=== PATIENT | male | born 1975 | race Caucasian/White ===

== ENCOUNTER 2022-12-23 20:19 | Emergency (ER) | payer OTHER ==
[~2022-12-23] VITALS: Ht 185.4 cm; Wt 111.1 kg
[2022-12-23 20:45] VITALS: BP_SYST 150
[2022-12-23 21:16] LABS: BILIRUBIN,URINE NEGATIVE (NEGATIVE); BLOOD, URINE 1+ (NEGATIVE); CLARITY/URINE CLEAR (CLEAR); COLOR,URINE YELLOW (YELLOW); GLUCOSE,URINE NEGATIVE (NEGATIVE); KETONES,URINE NEGATIVE (NEGATIVE); LEUKOCYTE ESTERASE ,URINE NEGATIVE (NEGATIVE); NITRITE, URINE NEGATIVE (NEGATIVE); PROTEIN URINE NEGATIVE (NEGATIVE); UROBILINOGEN,URINE 0.2 (0.2-1.0)
[2022-12-23 21:38] LABS: BACTERIA,URINE None Seen /HPF (None Seen); MUCUS,URINE None Seen /LPF (None Seen); RBC,URINE NONE SEEN /HPF (0-3); WBC,URINE NONE SEEN /HPF (0-3)
[2022-12-23 21:43] LABS: BASOPHILS % (AUTO) 0.3 % (0.0-2.0); EOSINOPHILS # (AUTO) 0.4 K/uL (0.0-0.4); EOSINOPHILS % (AUTO) 3.1 % (0.0-4.0); HEMOGLOBIN 14.6 g/dL (14.0-18.0); LYMPHOCYTES # (AUTO) 2.4 K/uL (1.0-5.5); MEAN CORPUSCULAR HEMOGLOBIN 30 pg (27-31); MEAN CORPUSCULAR HGB CONC 35 % (32-36); MEAN CORPUSCULAR VOLUME 86 fL (79.0-98.0); MONOCYTES # (AUTO) 1.4 K/uL (0.0-1.0); MONOCYTES % (AUTO) 10.2 % (1.7-9.3); NEUTROPHILS # (AUTO) 9.1 K/uL (1.8-7.7); NEUTROPHILS % (AUTO) 68.4 % (40.0-70.0); PLATELET COUNT (AUTO) 252 K/uL (130-430); RED BLOOD CELL COUNT(AUTO) 4.87 MIL/uL (4.2-6.2); RED CELL DISTRIBUTION WIDTH 13.1 % (9.0-15.0); WHITE BLOOD COUNT (AUTO) 13.3 K/uL (4.8-10.8)
--- NOTE | 2022-12-23 21:45 | NUR ---
Patient to ER bed 3 to gown for evaluation. Side rails up. Report given to VALDEMAR LOPEZ(ROSA).
[2022-12-23 21:49] LABS: CALCIUM 8.6 mg/dL (8.4-11.0); CREATININE 1.53 mg/dL (0.55-1.30)
[2022-12-23 21:53] LABS: ALBUMIN 4.1 g/dL (3.4-4.8); TOTAL BILIRUBIN 0.5 mg/dL (0.0-1.0)
--- NOTE | 2022-12-23 21:59 | NUR ---
Patient noted sitting on chair in room, does not wish to lay down on gurney, states he has a constant urge that his bladder is full, states he has intermittent right sided abdomen pain when unable to urinate, states that his urinary retention is intermittent
[2022-12-23] MEDS ORDERED: TAMS-11 PO (23:08)
[2022-12-23] MEDS ORDERED: IBUP-1969 PO (23:08)
[2022-12-23] MEDS ORDERED: TAMSULOSIN HCL 0.4 MG CAP PO ONE (23:15)
[2022-12-23 23:50] VITALS: BP_SYST 132
--- NOTE | 2022-12-23 23:54 | NUR ---
Patient given written and verbal discharge instructions and verbalizes understanding. ER MD discussed with patient the results and treatment provided. Patient in stable condition. ID arm band removed. IV catheter removed intact and dressing applied, no active bleeding. INTRUSTED TO INCREASE FLUID INTAKE TO ASSIST WITH KIDNEY STONE PASSING Rx of given. Patient educated on pain management and to follow up with PMD. Pain Scale 5/10. Opportunity for questions provided and answered. Medication side effect fact sheet provided.
== END 2022-12-23 23:52 | disposition home or self-care (01) ==
LOC: SED 20:19
DX: N36.8 Other specified disorders of urethra (principal); N13.30 Unspecified hydronephrosis; R10.31 Right lower quadrant pain; N28.9 Disorder of kidney and ureter, unspecified; R35.0 Frequency of micturition; R39.15 Urgency of urination; Z88.0 Allergy status to penicillin; Z79.899 Other long term (current) drug therapy
CPT/HCPCS: 36415; 76376; 80053; 81000; 83690; 85025; 99284